=== PATIENT | male | born 1945 | race Caucasian/White ===

== ENCOUNTER 2018-08-11 12:33 | Outpatient (CLI) ==
[2018-08-11 12:55] VITALS: BP 165/91; TEMP 97.8
[2018-08-11] MEDS ORDERED: SODIUM CHLORIDE IV ONE (12:55)
[2018-08-11] MEDS ORDERED: VENOFER IV ONE (12:55)
== END 2018-08-11 12:34 | disposition home or self-care (01) ==
LOC: OPMED 12:33
PROVIDERS: ATTEND Family Medicine
DX: D50.9 Iron deficiency anemia, unspecified (principal); K90.9 Intestinal malabsorption, unspecified
CPT/HCPCS: 96365

== ENCOUNTER 2018-08-12 12:47 | Outpatient (CLI) ==
[2018-08-12 13:31] VITALS: BP 112/63; TEMP 98.2
[2018-08-12] MEDS ORDERED: VENOFER IV ONE (13:38)
[2018-08-12] MEDS ORDERED: SODIUM CHLORIDE IV ONE (13:38)
== END 2018-08-12 12:48 | disposition home or self-care (01) ==
LOC: OPMED 12:47
PROVIDERS: ATTEND Family Medicine
DX: D50.9 Iron deficiency anemia, unspecified (principal); K90.9 Intestinal malabsorption, unspecified
CPT/HCPCS: 96365

== ENCOUNTER 2018-08-13 12:52 | Outpatient (CLI) | payer OTHER ==
[2018-08-13 13:09] VITALS: BP 144/69; TEMP 98.2
[2018-08-13] MEDS ORDERED: VENOFER IV ONE (13:10)
[2018-08-13] MEDS ORDERED: SODIUM CHLORIDE IV ONE (13:10)
== END 2018-08-13 12:53 | disposition home or self-care (01) ==
LOC: OPMED 12:52
PROVIDERS: ATTEND Family Medicine
DX: D50.9 Iron deficiency anemia, unspecified (principal); K90.9 Intestinal malabsorption, unspecified
CPT/HCPCS: 96365